=== PATIENT | male | born 1950 | race Caucasian/White ===

== ENCOUNTER 2020-08-28 13:08 | Outpatient (CLI) | payer OTHER ==
[2020-08-28 14:18] LABS: BASOPHILS % (AUTO) 0.8 % (0-1); EOSINOPHILS # (AUTO) 0.1 X10'3 (0-0.9); EOSINOPHILS % (AUTO) 1.9 % (0-6); HEMATOCRIT 41.8 % (42.0-52.0); HEMOGLOBIN 13.8 g/dl (14.0-17.9); LYMPHOCYTES # (AUTO) 1.9 X10'3 (1.1-4.8); LYMPHOCYTES % (AUTO) 36.7 % (21-51); MEAN CORPUSCULAR HEMOGLOBIN 29.8 PG (27.0-31.0); MEAN CORPUSCULAR VOLUME 90.2 FL (78-98); MONOCYTES # (AUTO) 0.6 X10'3 (0-0.9); MONOCYTES % (AUTO) 11.2 % (2-12); NEUTROPHILS # (AUTO) 2.5 X10'3 (1.8-7.7); NEUTROPHILS % (AUTO) 49.4 % (42-75); PLATELET COUNT 93 X10'3 (140-440); RED BLOOD COUNT 4.64 X10'6 (4.70-6.10); RED CELL DISTRIBUTION WIDTH 15.3 % (11.5-14.5); WHITE BLOOD COUNT 5.1 X10'3 (4.5-11.0)
== END 2020-08-28 23:59 | disposition home or self-care (01) ==
LOC: LAB 13:08
PROVIDERS: ATTEND Orthopaedic Surgery
DX: C90.00 Multiple myeloma not having achieved remission (principal)
CPT/HCPCS: 85025

== ENCOUNTER 2023-10-24 13:06 | Day surgery (SDC) | payer OTHER ==
[2023-10-20 14:12] LABS: HEMOGLOBIN 10.2 g/dl (14.0-17.9); MEAN CORPUSCULAR HEMOGLOBIN 28.4 PG (27.0-31.0); MEAN PLATELET VOLUME 7.3 FL (7.4-10.4); MONOCYTES # (AUTO) 0.1 X10'3 (0-0.9); RED CELL DISTRIBUTION WIDTH 19.4 % (11.5-14.5); WHITE BLOOD COUNT 1.7 X10'3 (4.5-11.0)
[2023-10-20 14:14] LABS: BASOPHILS % (AUTO) 0.6 % (0-1); EOSINOPHILS % (AUTO) 1.2 % (0-6); HEMATOCRIT 31.1 % (42.0-52.0); LYMPHOCYTES # (AUTO) 0.2 X10'3 (1.1-4.8); LYMPHOCYTES % (AUTO) 14.5 % (21-51); MEAN CORPUSCULAR HGB CONC 32.6 g/dL (33.0-36.5); MONOCYTES % (AUTO) 4.2 % (2-12); NEUTROPHILS # (AUTO) 1.3 X10'3 (1.8-7.7); NEUTROPHILS % (AUTO) 79.5 % (42-75); PLATELET COUNT 69 X10'3 (140-440); RED BLOOD COUNT 3.57 X10'6 (4.70-6.10)
[2023-10-20 14:23] LABS: APTT 26 SECONDS (22-32); PROTHROMBIN TIME 10.6 SECONDS (9.0-12.0)
[2023-10-20 14:24] LABS: ANION GAP 12 (8-16); BLOOD UREA NITROGEN 23 MG/DL (7-18); BUN/CREATININE RATIO 15.9 (10.0-20.0); CHLORIDE 105 MMOL/L (99-107); CHOL/HDL RATIO 2.5 (0.00-4.99); CHOLESTEROL 116 MG/DL (0-200); CREATININE 1.45 MG/DL (0.60-1.10); GLUCOSE 208 MG/DL (70-104); HDL CHOLESTEROL 47 MG/DL (35-60); LDL CHOLESTEROL 55 MG/DL (50-100); POTASSIUM 4.5 MMOL/L (3.5-5.1); SODIUM 137 MMOL/L (135-145); TOTAL CARBON DIOXIDE 20.5 MMOL/L (24-32); TRIGLYCERIDES 105 MG/DL (20-135); eGFR 48 ML/MIN
[2023-10-20 14:42] LABS: ANISOCYTOSIS 2+; PLATELET ESTIMATE DECREASED; TOTAL CELLS COUNTED 100
[2023-10-20 14:43] LABS: ELLIPTOCYTES FEW; TEAR DROP CELLS FEW
[~2023-10-24] VITALS: Ht 177.8 cm; Wt 84.1 kg
[2023-10-24] VITALS (11 sets, daily range): BP systolic 99–122; BP diastolic 53–74; PULSE 63–74; RESP 10–21; TEMP 98.1; O2SAT 95–98
[~2023-10-24 13:06] MED LIST: LIDOcaine 1% (10mg/ml) 2ml vial ONE; fentaNYL/PF 50MCG/1 ML 2ML syringe ONE; heparin 1,000unit/ml 10ml vial 10 ML ONE; iohexol 350MG/ML 100ml bottle IV ONE; midazolam 1 mg/ML 2ml injection ONE; nitroGLYCERIN 500mcg/5mL D5W 5 ML IV ONE; verapamil 2.5 mg/ml inj IV ONE
[2023-10-24] MEDS: normal saline 1,000 ML IV SCH (13:20)
[2023-10-24] MEDS ORDERED: LOSA25TA41 PO (14:09)
[2023-10-24] MEDS ORDERED: MAGN400T56 (14:09)
[2023-10-24] MEDS ORDERED: CALC-3 PO (14:09)
[2023-10-24] MEDS ORDERED: SULF1TAB45 PO (14:09)
[2023-10-24] MEDS ORDERED: FERR325T33 PO (14:09)
[2023-10-24] MEDS ORDERED: ASCO500T22 (14:09)
[2023-10-24] MEDS ORDERED: BUPR100T15 PO (14:09)
[2023-10-24] MEDS ORDERED: DAPT500F (14:09)
[2023-10-24] MEDS ORDERED: ASPI-1265 PO (14:09)
[2023-10-24] MEDS ORDERED: METF-900 PO (14:09)
[2023-10-24] MEDS ORDERED: SITA100T15 PO (14:10)
[2023-10-24] MEDS ORDERED: MULT-1085 PO (14:11)
[2023-10-24] MEDS ORDERED: GABA300C PO (14:13)
[2023-10-24] MEDS ORDERED: DEC4T (14:17)
[2023-10-24] MEDS ORDERED: POMA2CAP (14:17)
[2023-10-24] MEDS ORDERED: ACYC-126 PO (14:17)
[2023-10-24] MEDS ORDERED: ALPR-163 (14:17)
[2023-10-24] MEDS: LORazepam 0.5 MG tablet PO PRN (14:23)
[2023-10-24] MEDS: diphenhydrAMINE 25mg capsule PO PRN (14:23)
[2023-10-24] MEDS ORDERED: heparin 1,000unit/ml 10ml vial 10 ML ONE (15:10)
[2023-10-24] MEDS ORDERED: ondansetron/PF 4mg/2ml inj IV PRN (16:20)
[2023-10-24] MEDS ORDERED: proCHLORperazine 10 MG/2 ml inj IV PRN (16:20)
[2023-10-24] MEDS ORDERED: OXAZEpam 15mg capsule PO PRN (16:20)
== END 2023-10-24 19:37 | disposition home or self-care (01) ==
LOC: SSTAY O 13:06
PROVIDERS: ATTEND Student in an Organized Health Care Education/Training Program
DX: R94.39 Abnormal result of other cardiovascular function study (principal); I45.10 Unspecified right bundle-branch block; I25.10 Atherosclerotic heart disease of native coronary artery without angina pectoris; I10 Essential (primary) hypertension; E11.9 Type 2 diabetes mellitus without complications; E78.00 Pure hypercholesterolemia, unspecified; Z79.82 Long term (current) use of aspirin; Z79.84 Long term (current) use of oral hypoglycemic drugs; Z79.891 Long term (current) use of opiate analgesic; Z79.899 Other long term (current) drug therapy; Z88.2 Allergy status to sulfonamides; Z88.8 Allergy status to other drugs, medicaments and biological substances
CPT/HCPCS: 36415; 80048; 80061; 82948; 85025; 85610; 85730; 93005; 93458; 99152; 99153; J1644; J2250; J3010; J3490; J7030; Q0163; Q9967; 85007; A6258; A6402; C1894